=== PATIENT | male | born 1945 | race Caucasian/White ===

== ENCOUNTER 2023-06-10 10:58 | Outpatient (OUT) | payer MEDICARE, SELFPAY ==
[2023-06-10 11:45] LABS: Basophils Absolute Auto 0.1 10^3/uL (0.0-0.1); Basophils Percent Auto 0.6 % (0.2-2.0); Eosinophils Absolute Auto 0.2 10^3/uL (0.0-0.7); Hematocrit 44.6 % (42.0-54.0); Hemoglobin 15.4 g/dL (14.0-18.0); Immature Granulocytes Abs Auto 0.03 10^3/uL (0.00-0.03); Immature Granulocytes Pct Auto 0.3 % (0.0-0.5); Lymphocytes Absolute Auto 2.5 10^3/uL (1.2-3.8); Lymphocytes Percent Auto 24.8 % (20.5-60.0); Mean Corpuscular HGB Conc 34.5 g/dL (29.9-35.2); Mean Corpuscular Hemoglobin 31.5 pg (25.9-34.0); Mean Corpuscular Volume 91.2 fL (80.0-94.0); Mean Platelet Volume 9.8 fL (9.5-13.5); Monocytes Absolute Auto 0.9 10^3/uL (0.3-0.8); Monocytes Percent Auto 9.3 % (1.7-12.0); Neutrophils Absolute Auto 6.3 10^3/uL (1.4-6.5); Platelet Count 231 10^3/uL (150-450); Red Blood Count 4.89 10^6/uL (4.70-6.10); Red Cell Distribution Width 12.2 % (11.0-15.0); White Blood Count 10.1 10^3/uL (4.0-11.0)
[2023-06-10 11:58] LABS: Estimated Average Glucose 143 mg/dL; Glycohemoglobin A1C 6.6 % (4.5-6.2)
[2023-06-10 12:34] LABS: Alanine Aminotransferase 26 U/L (16-63); Albumin Globulin Ratio 1.1; Albumin Level 3.9 g/dL (3.4-5.0); Alkaline Phosphatase 91 U/L (46-116); Aspartate Amino Transferase 21 U/L (15-37); BUN Creatinine Ratio 12.8; Bilirubin Total 0.5 mg/dL (0.2-1.0); Calcium 8.9 mg/dL (8.5-10.1); Carbon Dioxide 29.1 mmol/L (21.0-32.0); Chloride 103 mmol/L (98-107); Chol HDL Ratio 3.3; Cholesterol 147 mg/dL (<=200); Estimated GFR (African America 55 (>=60); Estimated GFR (Non-African Ame 45 (>=60); Free T3 2.56 pg/mL (2.18-3.98); Globulin 3.5 g/dL; Glucose 102 mg/dL (74-106); HDL Cholesterol 44 mg/dL (40-60); LDL Cholesterol Calculated 74.2 mg/dL; Potassium 4.1 mmol/L (3.5-5.1); Sodium 141 mmol/L (136-145); Thyroid Stimulating Hormone 3.048 uIU/mL (0.358-3.740); Total Protein 7.4 g/dL (6.4-8.2); Triglycerides 144 mg/dL (<=150); VLDL CHOLESTEROL 28.8 mg/dL
[2023-06-10 12:36] LABS: Prostate Specific Antigen Scrn 4.86 ng/mL (<=4.00)
[2023-06-12 08:12] LABS: PSA, Free 1.65 ng/mL
== END 2023-06-10 10:59 | disposition home or self-care (01) ==
LOC: LAB 11:01
PROVIDERS: PCP Family Medicine; Visit Provider Family Medicine
DX: I10 Essential (primary) hypertension (principal); F52.21 Male erectile disorder; E11.65 Type 2 diabetes mellitus with hyperglycemia; E78.5 Hyperlipidemia, unspecified; Z12.5 Encounter for screening for malignant neoplasm of prostate; R73.09 Other abnormal glucose
CPT/HCPCS: 36415; 80053; 80061; 83036; 84153; 84154; 84436; 84443; 84481; 85025; G0103

== ENCOUNTER 2023-06-13 12:15 | Outpatient (OUT) | payer MEDICARE, SELFPAY ==
[2023-06-16 08:20] LABS: PSA, Free 1.82 ng/mL; Prostate Specific Ag 4.9 ng/mL (0.0-4.0)
== END 2023-06-13 12:16 | disposition home or self-care (01) ==
LOC: LAB 12:17
PROVIDERS: PCP Family Medicine; Visit Provider Family Medicine
DX: R97.20 Elevated prostate specific antigen [PSA] (principal)
CPT/HCPCS: 36415; 84153; 84154

== ENCOUNTER 2023-12-21 09:33 | Outpatient (OUT) | payer MEDICARE, SELFPAY ==
--- OUTSIDE RECORDS SUMMARY | 2023-12-21 09:41 | XMS_ITS | CCD ---
Author Organization [facility] Care Team Providers Care Half Sole Fitter Name Role Phone ROSIO LOCKETT Admitting Unavailable ADOLFO ., DR DONNELLY Primary Care Unavailable ROSIO LOCKETT Attending Unavailable ROSIO LOCKETT Consulting Unavailable NILAY JEONG Consulting Unavailable MARLENE HERNANDEZ Consulting Unavailable Allergies Allergy Classification Reported Allergen(s) Allergy Type Date of Onset Reaction(s) Facility (1 source) Penicillin Drug Allergy 02-14-2020 [facility] Repository Results Test Name Value Interpretation Reference Range Facil ity CT CHEST WO CONon 01-18-2023 CT CHEST WO CON EXAMINATION: CT CHES T WO CON HISTORY: CHEST PAIN, UNSPECIFIED COMPARISON: None. TECHNIQUE: CT examination of the chest without IV contrast. Coronal and sagittal reformations were performed. Dose reduction techniques were achieved by using automated exposure control and/or adjustment of mA and/or kV according to patient size and/or use of iterative reconstruction technique. FINDINGS: The heart size is normal. There is no evidence for pericardial effusion. The thoracic aorta is normal in course and caliber. There is no evidence for thoracic aortic aneurysm. Thoracic aortic calcification is seen. There is no evidence for pleural effusion or pneumothorax. No significant enlarged hilar, mediastinal or axillary adenopathy is seen. A 9 mm benign calcified nodule is seen in the right upper lobe. Atelectasis versus less likely small infiltrate is seen in the right lung base. Linear parenchymal markings are also seen in the right middle and lower lobes, suggestive of mild scar/atelectatic changes. The visualized chest wall appears unremarkable. Small gallstone is seen within the visualized gallbladder. No significant pleural thickening is seen in the visualized upper abdomen. Multilevel degenerative changes of the thoracic spine is seen. Acute to subacute mildly displaced left lateral sixth rib fracture is seen. IMPRESSION: Acute to subacute mildly displaced left lateral sixth rib fracture is seen. Atelectasis versus less likely small infiltrate is seen in the right lung base. Cholelithiasis. Electronically authenticated by: NILAY NOONANDANII Date: 2023-01-18 00:05 Normal [facility] Ambulatory Clinical Summaryo n 04-03-2020 Ambulatory Clinical Summary {[id number] Normal [facility] Ambulatory Clinical Summary {[id number] Normal [facility] General Surgery Office/Clini c Noteon 04-03-2020 General Surgery Office/Clinic Note Chief Complaint post operative follow up HPI Staff 14 day post operative follow up post excisional biopsy of right arm completed 03/20. Incision well approximated. Sutures intact. Denies drainage. History of Present Illness 2 weeks s/p excision of changing lesion right upper arm, pathology consistent with basal cell carcinoma, margins negative; doing well, some itching at incision, no drainage. Review of Systems ROS - Provider Constitutional: no fever, no sweats, no weight loss. Eyes: no glasses, no blurred vision, no visual loss. ENMT: no dentures, no hoarseness, no swallowing difficulties, no hearing loss, no ear infection(s), no nose bleeds. Cardiovascular: normal blood pressure, no chest pain, regular heartbeat, no heart murmur. Respiratory: no shortness of breath, no cough, no asthma, no wheezing. Gastrointestinal: no nausea, no vomiting, no diarrhea, no constipation, no blood in stool, no change in bowel habits, no abdominal pain, no hepatitis. Genitourinary: no kidney stones, no urine infection, no dysuria. Musculoskeletal: no pain, no weakness. Skin: no changing moles, no rash, no skin lumps. Neurologic: no seizures, no epilepsy, no headache. Psychiatric: no emotional or psychiatric problem. Heme/Lymph: no bleeding problems, no anemia, no blood clots, no transfusions. Allergy/Immunologic: no swollen lymph nodes/glands, no IV drug abuse. Other: Additional ROS info: Except as noted in the above Review of Systems and in the History of Present Illness, all other systems have been reviewed and are negative or noncontributory. Physical Exam Vitals & Measurements T: 36.5 ?C (Tympanic) skin: incision healing well, no drainage or ecchymoses; minimal erythema around sutures. Assessment/Plan 1. Basal cell carcinoma of right upper arm (C44.612: Basal cell carcinoma of skin of right upper limb, including shoulder) sutures removed; follow up as needed, call with problems/questions. Follow-up No qualifying data available Problem List/Past Medical History Ongoing Acquired cataract Basal cell carcinoma of right upper arm Basal cell carcinoma of upper back Benign essential HTN Controlled diabetes mellitus with hyperglycemia Neoplasm of uncertain behavior of skin Historical No qualifying data Procedure/Surgical History Artificial lens, Bilateral cataracts, Carotid stent, Lumbar discectomy, Rupture of left rotator cuff. Medications amLODIPine 5 mg Tab, 5 mg= 1 tab(s), Oral, Daily atorvastatin 40 mg Tab, 40 mg= 1 tab(s), Oral, Daily hydrochlorothiazide 12.5 mg Tab, 12.5 mg= 1 tab(s), Oral, Daily Lantus Solostar Pen, 20 unit(s), SubCutaneous, Daily lisinopril 40 mg Tab, 40 mg= 1 tab(s), Oral, Daily metformin 1000 mg Tab, 1000 mg= 1 tab(s), Oral, Bedtime Allergies penicillin (Unknown) Social History Alcohol Current, Beer, Daily, 03/15/2020 Substance Abuse - Denies Substance Abuse, 03/15/2020 Tobacco 10 or more cigarettes (1/2 pack or more)/day in last 30 days Tobacco Use:. Started age 11.0 Years[age] 03/15/2020 Family History Alcoholism: Brother. Cardiac arrest: Mother. Primary malignant neoplasm of brain: Sister. Normal [facility] Comment on above: Result Comment: Elec tronically Signed By: DAVID FELDER, Gen Boswell\Date and Time Signed: 04/03/20 14:20 EDT Pathology Noteon 03-26-2020 Pathology Note [id number]:127 Normal [facility] Ambulatory Clinical Summaryo n 2020 Ambulatory Clinical Summary {[id number]}CD:[id number] Normal [facility] General Surgery Office/Clini c Noteon 2020 General Surgery Office/Clinic Note Chief Complaint excisional biopsy- right arm HPI Staff Presents for excisional biopsy of right upper arm lesion. History of Present Illness patient here for excision of changing, enlarging lesion right upper extremity; smaller lesion adjacent to larger one. Review of Systems ROS - Provider Constitutional: no fever, no sweats, no weight loss. Eyes: yes glasses, no blurred vision, no visual loss. ENMT: no dentures, no hoarseness, no swallowing difficulties, no hearing loss, no ear infection(s), no nose bleeds. Cardiovascular: high blood pressure, no chest pain, regular heartbeat, no heart murmur. Respiratory: no shortness of breath, no cough, no asthma, no wheezing. Gastrointestinal: no nausea, no vomiting, no diarrhea, no constipation, no blood in stool, no change in bowel habits, no abdominal pain, no hepatitis. Genitourinary: no kidney stones, no urine infection, no dysuria. Musculoskeletal: no pain, no weakness. Skin: yes changing moles, no rash, no skin lumps. Neurologic: no seizures, no epilepsy, no headache. Psychiatric: no emotional or psychiatric problem. Heme/Lymph: no bleeding problems, no anemia, no blood clots, no transfusions. Allergy/Immunologic: no swollen lymph nodes/glands, no IV drug abuse. Other: Additional ROS info: Except as noted in the above Review of Systems and in the History of Present Illness, all other systems have been reviewed and are negative or noncontributory. Physical Exam Vitals & Measurements T: 37.0 ?C (Tympanic) skin: right upper outer arm with 6 mm irregular raised lesion with 3 mm adjacent similar lesion, no ulceration or bleeding. Procedure patient brought to procedure room, placed in left lateral decubitus position; area prepped and draped; anesthetized with 4 ml of 1% lidocaine plain; area excised in an elliptical fashion down to subcutaneous fat; including small adjacent lesion, total length of incision 2.2 cm; closed with interrupted 4-0 nylon sutures, tolerated well, ebl < 3 ml. sterile dressing applied. Assessment/Plan 1. Neoplasm of uncertain behavior of skin (D48.5: Neoplasm of uncertain behavior of skin) excised under local anesthesia, follow up in 2 weeks, call sooner if problems/questions. Follow-up No qualifying data available Problem List/Past Medical History Ongoing Acquired cataract Basal cell carcinoma of upper back Benign essential HTN Controlled diabetes mellitus with hyperglycemia Neoplasm of uncertain behavior of skin Historical No qualifying data Procedure/Surgical History Artificial lens, Bilateral cataracts, Carotid stent, Lumbar discectomy, Rupture of left rotator cuff. Medications amLODIPine 5 mg Tab, 5 mg= 1 tab(s), Oral, Daily atorvastatin 40 mg Tab, 40 mg= 1 tab(s), Oral, Daily hydrochlorothiazide 12.5 mg Tab, 12.5 mg= 1 tab(s), Oral, Daily Lantus Solostar Pen, 20 unit(s), SubCutaneous, Daily lisinopril 40 mg Tab, 40 mg= 1 tab(s), Oral, Daily metformin 1000 mg Tab, 1000 mg= 1 tab(s), Oral, Bedtime Allergies penicillin (Unknown) Social History Alcohol Current, Beer, Daily, 03/15/2020 Substance Abuse - Denies Substance Abuse, 03/15/2020 Tobacco 10 or more cigarettes (1/2 pack or more)/day in last 30 days Tobacco Use:. Started age 12.0 Years., 03/15/2020 Family History Alcoholism: Brother. Cardiac arrest: Mother. Primary malignant neoplasm of brain: Sister. Normal [facility] Comment on above: Result Comment: Elec tronically Signed By: DAVID FELDER, Gen Boswell\Date and Time Signed: 03/20/20 16:29 EDT Facesheeton 03-16-2020 Facesheet [id number]:127 Normal [facility] Ambulatory Clinical Summaryo n 03-15-2020 Ambulatory Clinical Summary {[id number]}CD:[id number] Normal [facility] General Surgery Office/Clini c Noteon 03-15-2020 General Surgery Office/Clinic Note Chief Complaint referral for skin lesion on right upper arm HPI Staff 74 year old male presents on consultation from Dr. Mccarty for skin lesion on right upper arm. Present 4-5 months. Extremely itchy. Has not changed in size. Applying Fluorouracil, which has not been effective. History of basal cell cancer on back. History of Present Illness 74 yo male with h/o basal cell cancer, h/o significant sun exposure, lived in [place] for 10 years, now with changing, enlarging lesion right upper extremity; nonpigmented, no bleeding, does scab over; very itchy; denies asa or NSAID use. Review of Systems PHQ Score Initial Depression Screen Score: 0 ROS - Provider Constitutional: no fever, no sweats, no weight loss. Eyes: no glasses, no blurred vision, no visual loss. ENMT: no dentures, no hoarseness, no swallowing difficulties, no hearing loss, no ear infection(s), no nose bleeds. Cardiovascular: normal blood pressure, no chest pain, regular heartbeat, no heart murmur. Respiratory: no shortness of breath, no cough, no asthma, no wheezing. Gastrointestinal: no nausea, no vomiting, no diarrhea, no constipation, no blood in stool, no change in bowel habits, no abdominal pain, no hepatitis. Genitourinary: no kidney stones, no urine infection, no dysuria. Musculoskeletal: no pain, no weakness. Skin: yes changing moles, no rash, no skin lumps. Neurologic: no seizures, no epilepsy, no headache. Psychiatric: no emotional or psychiatric problem. Heme/Lymph: no bleeding problems, no anemia, no blood clots, no transfusions. Allergy/Immunologic: no swollen lymph nodes/glands, no IV drug abuse. Other: Additional ROS info: Except as noted in the above Review of Systems and in the History of Present Illness, all other systems have been reviewed and are negative or noncontributory. Physical Exam Vitals & Measurements T: 36.8 ?C (Tympanic) HR: 80(Peripheral) RR: 16 BP: 170/78 HT: 170.18 cm WT: 96.0 kg BMI: 33.15 HEENT: normal conjunctiva, sclera clear, no scleral icterus, EOM intact, PERRLA, oral mucosa moist without lesions. Neck: trachea midline, no mass, symmetric, no thyromegaly or nodules, no adenopathy Respiratory: lungs CTA, respirations non labored. Cardiovascular: regular rate and rhythm, no murmur, no pedal edema or varicosities. Lymphatic: no cervical adenopathy, no axillary adenopathy, Musculoskeletal: normal gait, digits and nails without infection, nodes, cyanosis, clubbing. Skin: no rashes, right upper extremity with 6 mm irregular lesion, raised component, erythematous, no pigmentation, no drainage; no ulcers, no subcutaneous nodules, induration. Psychiatric/Neuro: oriented to time, place, person, judgement normal, affect appropriate for age, insight intact, no focal deficits. Tests: review of old records completed, Discussed surgical options, risks, and possible complications with patient. Assessment/Plan 1. Neoplasm of uncertain behavior of skin (D48.5: Neoplasm of uncertain behavior of skin) plan excisional biopsy in the office under local anesthesia for definitive diagnosis and treatment, informed consent obtained. Follow-up No qualifying data available Patient Education Excision of Skin Lesions Problem List/Past Medical History Ongoing Acquired cataract Basal cell carcinoma of upper back Benign essential HTN Controlled diabetes mellitus with hyperglycemia Neoplasm of uncertain behavior of skin Historical No qualifying data Procedure/Surgical History Artificial lens, Bilateral cataracts, Carotid stent, Lumbar discectomy, Rupture of left rotator cuff. Medications amLODIPine 5 mg Tab, 5 mg= 1 tab(s), Oral, Daily atorvastatin 40 mg Tab, 40 mg= 1 tab(s), Oral, Daily hydrochlorothiazide 12.5 mg Tab, 12.5 mg= 1 tab(s), Oral, Daily Lantus Solostar Pen, 20 unit(s), SubCutaneous, Daily lisinopril 40 mg Tab, 40 mg= 1 tab(s), Oral, Daily metformin 1000 mg Tab, 1000 mg= 1 tab(s), Oral, Bedtime Allergies penicillin (Unknown) Social History Alcohol Current, Beer, Daily, 03/15/2020 Substance Abuse - Denies Substance Abuse, 03/15/2020 Tobacco 10 or more cigarettes (1/2 pack or more)/day in last 30 days Tobacco Use:. Started age 11.0 Years., 03/15/2020 Family History Alcoholism: Brother. Cardiac arrest: Mother. Primary malignant neoplasm of brain: Sister. Normal [facility] Comment on above: Result Comment: Elec tronically Signed By: DAVID FELDER, Gen Boswell\Date and Time Signed: 03/15/20 09:37 EDT Patient Educationon 03-15-20 20 Patient Education Excision of Skin Lesions Excision of a skin lesion refers to the removal of a section of skin by making small cuts (incisions ) in the skin. This is typically done to remove a cancerous growth (basal cell carcinoma, squamous cell carcinoma, or melanoma) or a noncancerous growth (cyst ). It may be done to treat or prevent cancer or infection. It may also be done to improve cosmetic appearance (removal of mole, skin tag). LET YOUR CAREGIVER KNOW ABOUT: ? Allergies to food or medicine. ? Medicines taken, including vitamins, herbs, eyedrops, [id number] medicines, and creams. ? Use of steroids (by mouth or creams). ? Previous problems with anesthetics or numbing medicines. ? History of bleeding problems or blood clots. ? History of any prostheses. ? Previous surgery. ? Other health problems, including diabetes and kidney problems. ? Possibility of , if this applies. RISKS AND COMPLICATIONS Many complications can be managed. With appropriate treatment and rehabilitation, the following complications are very uncommon: ? Bleeding. ? Infection. ? Scarring. ? Recurrence of cyst or cancer. ? Changes in skin sensation or appearance (discoloration, swelling). ? Reaction to anesthesia. ? Allergic reaction to surgical materials or ointments. ? Damage to nerves, blood vessels, muscles, or other structures. ? Continued pain. BEFORE THE PROCEDURE It is important to follow your caregiver's instructions prior to your procedure to avoid complications. Steps before your procedure may include: ? Physical exam, blood tests, other procedures, such as removing a small sample for examination under a microscope (biopsy ). ? Your caregiver may review the procedure, the anesthesia being used, and what to expect after the procedure with you. You may be asked to: ? Stop taking certain medicines, such as blood thinners (including aspirin, clopidogrel, ibuprofen), for several days prior to your procedure. ? Take certain medicines. ? Stop smoking. It is a good idea to arrange for a ride home after surgery and to have someone to help you with activities during recovery. PROCEDURE There are several excision techniques. The type of excision or surgical technique used will depend on your condition, the location of the lesion, and your overall health. After the lesion is sterilized and a local anesthetic is applied, the following may be performed: Complete surgical excision The area to be removed is marked with a pen. Using a small scalpel and scissors, the surgeon gently cuts around and under the lesion until it is completely removed. The lesion is placed in a special fluid and sent to the lab for examination. If necessary, bleeding will be controlled with a device that delivers heat. The edges of the wound are stitched together and a dressing is applied. This procedure may be performed to treat a cancerous growth or noncancerous cyst or lesion. Surgeons commonly perform an elliptical excision, to minimize scarring. Excision of a cyst The surgeon makes an incision on the cyst. The entire cyst is removed through the incision. The wound may be closed with a suture (stitch ). Shave excision During shave excision, the surgeon uses a small blade or loop instrument to shave off the lesion. This may be done to remove a mole or skin tag. The wound is usually left to heal on its own without stitches. Punch excision During punch excision, the surgeon uses a small, round tool (like a [employer]rol[employer]ie cutter) to cut a [place] shape out of the skin. The outer edges of the skin are stitched together. This may be done to remove a mole or scar or to perform a biopsy of the lesion. Mohs micrographic surgery During Mohs micrographic surgery, layers of the lesion are removed with a scalpel or loop instrument and immediately examined under a microscope until all of the abnormal or cancerous tissue is removed. This procedure is minimally invasive and ensures the best cosmetic outcome, with removal of as little normal tissue as possible. Mohs is usually done to treat skin cancer, such as basal cell carcinoma or squamous cell carcinoma, particularly on the face and ears. Antibiotic ointment is applied to the surgical area after each of the procedures listed above, as necessary. AFTER THE PROCEDURE How well you heal depends on many factors. Most patients heal quite well with proper techniques and self-care. Scarring will lessen over time. HOME CARE INSTRUCTIONS ? Take medicines for pain as directed. ? Keep the incision area clean, dry, and protected for at least 48 hours. Change dressings as directed. ? For bleeding, apply gentle but firm pressure to the wound using a folded towel for 20 minutes. Call your caregiver if bleeding does not stop. ? Avoid high-impact exercise and activities until the stitches are removed or the area heals. ? Follow your caregiver's instructions to minimize scarring. Avoid sun exposure until the area has healed. Scarring should lessen over time. ? Follow up with your caregiver as directed. Removal of stitches within 4 to 14 days may be necessary. Finding out the results of your test Not all test results are available during your visit. If your test results are not back during the visit, make an appointment with your caregiver to find out the results. Do not assume everything is normal if you have not heard from your caregiver or the medical facility. It is important for you to follow up on all of your test results. SEEK MEDICAL CARE IF: ? You or your child has an oral temperature above 102? F (38.9? C). ? You develop signs of infection (chills, feeling unwell). ? You notice bleeding, pain, discharge, redness, or swelling at the incision site. ? You notice skin irregularities or changes in sensation. MAKE SURE YOU: ? Understand these instructions. ? Will watch your condition. ? Will get help right away if you are not doing well or get worse. FOR MORE INFORMATION [employer] [place] [employer]: www.aafp.org [employer] [place] [employer]: www.aad.org Document Released: 11/04/2010 Document Revised: 11/01/2012 Document Reviewed: 11/04/2010 ExitCare? Patient Information ?2013 [employer]. [facility] Physician Referralon 020 Physician Referral [id number] .[id number]:127 [facility] Encounters Encounter Date Encounter Type Care Provider Facility Start: 01-17-2023 End: 01-18-2023 [facility] Facility: Payers Date Payer Category Payer Medicare [id number] 1960 Unknown [id number] 1945 Unknown [id number] Clinical Note 01-18-2023 Note Date & Type Note Facility 01-18-2023 Note PROCEDURE: XR RIBS L T PA CH DATE: 01/17/2023 8:43 PM CDT COMPARISONS: None. CLINICAL INDICATION: 77 years Male Pain Requisition states: Patient states left affected side pops when he coughs FINDINGS: The cardiomediastinal silhouette and pulmonary vasculature are within normal limits. There is a 1.5 cm nodule of the lateral mid lower chest. This could be a neoplastic nodule. Follow-up CT of the chest is recommended. There is findings consistent with some atelectasis at the right lung base. There is no evidence of pleural effusion or pneumothorax. There is a slightly displaced fracture of the lateral left seventh rib. Subtle lucency of the lateral left sixth rib suggested could be the sixth rib fracture as well although this cannot be stated with certainty IMPRESSION: 1. Left seventh rib fracture, slightly displaced 2. 1 view shows a possible 15 mm nodule overlying the mid lower lateral right chest. Follow-up CT recommended for further evaluation. Electronically authenticated by: MARLENE HERNANDEZ Date: 2023-01-17 22:52 [facility] Summary Purpose Family History No Family History Records FoundNo Family History Records Found Advance Directives No Advanced Directives Records FoundNo Advanced Directives Records Found Additional Source Comments (unrecognized sect ion and content) No Status Records FoundNo Status Records Found INFORMATION SOURCE (unrecogn ized section and content) DATE CREATED AUTHOR 04/04/2020 [facility] DATE CREATED AUTHOR AUTHOR'S ORGANIZ ATION 01/30/2023 [facility] FOR RECORDS PERTAINING TO PATIENTS WHO ARE OR HAVE BEEN ENROLLED IN A CHEMICAL DEPENDENCY/SUBSTANCEABUSE PROGRAM, SOME INFORMATION MAY BE OMITTED. This clinical summary was aggregated from multiple sources. Caution should be exercised in using it in the provision of clinical care. This summary normalizes information from multiple sources, and as a consequence, information in this document may materially change the coding, format and clinical context of patient data. In addition, data may be omitted in some cases. CLINICAL DECISIONS SHOULD BE BASED ON THE PRIMARY CLINICAL RECORDS. [facility]. provides no warranty or guarantee of the accuracy or completeness of information in this document.
[2023-12-21 10:05] LABS: Basophils Absolute Auto 0.1 10^3/uL (0.0-0.1); Basophils Percent Auto 0.6 % (0.2-2.0); Eosinophils Absolute Auto 0.1 10^3/uL (0.0-0.7); Eosinophils Percent Auto 1.3 % (0.9-7.0); Hematocrit 46.4 % (42.0-54.0); Hemoglobin 15.5 g/dL (14.0-18.0); Immature Granulocytes Abs Auto 0.03 10^3/uL (0.00-0.03); Immature Granulocytes Pct Auto 0.3 % (0.0-0.5); Lymphocytes Absolute Auto 2.1 10^3/uL (1.2-3.8); Lymphocytes Percent Auto 21.4 % (20.5-60.0); Mean Corpuscular HGB Conc 33.4 g/dL (29.9-35.2); Mean Corpuscular Hemoglobin 30.6 pg (25.9-34.0); Mean Corpuscular Volume 91.5 fL (80.0-94.0); Mean Platelet Volume 9.2 fL (9.5-13.5); Monocytes Absolute Auto 1.1 10^3/uL (0.3-0.8); Monocytes Percent Auto 10.9 % (1.7-12.0); Neutrophils Absolute Auto 6.5 10^3/uL (1.4-6.5); Neutrophils Percent Auto 65.5 % (43.0-75.0); Platelet Count 243 10^3/uL (150-450); Red Blood Count 5.07 10^6/uL (4.70-6.10); Red Cell Distribution Width 12.4 % (11.0-15.0); White Blood Count 9.9 10^3/uL (4.0-11.0)
[2023-12-21 13:33] LABS: Alanine Aminotransferase 25 U/L (16-63); Albumin Level 3.6 g/dL (3.4-5.0); Alkaline Phosphatase 103 U/L (46-116); Anion Gap 13.2; Aspartate Amino Transferase 23 U/L (15-37); BUN Creatinine Ratio 22.6; Bilirubin Total 0.5 mg/dL (0.2-1.0); Calcium 9.1 mg/dL (8.5-10.1); Chloride 103 mmol/L (98-107); Chol HDL Ratio 2.8; Cholesterol 171 mg/dL (<=200); Estimated GFR (African America >60 (>=60); Estimated GFR (Non-African Ame 50 (>=60); Free T3 2.55 pg/mL (2.18-3.98); Globulin 3.7 g/dL; Glucose 113 mg/dL (74-106); HDL Cholesterol 62 mg/dL (40-60); Potassium 4.2 mmol/L (3.5-5.1); Sodium 135 mmol/L (136-145); Total Protein 7.3 g/dL (6.4-8.2); Triglycerides 48 mg/dL (<=150); VLDL CHOLESTEROL 9.6 mg/dL
[2023-12-21 14:14] LABS: Estimated Average Glucose 108 mg/dL; Glycohemoglobin A1C 5.4 % (4.5-6.2)
[2023-12-22 08:18] LABS: Prostate Specific Ag 4.7 ng/mL (0.0-4.0)
== END 2023-12-21 09:34 | disposition home or self-care (01) ==
LOC: LAB 09:37
PROVIDERS: PCP Family Medicine; Visit Provider Family Medicine
DX: Z00.00 Encounter for general adult medical examination without abnormal findings (principal); E78.5 Hyperlipidemia, unspecified; E03.9 Hypothyroidism, unspecified; E11.65 Type 2 diabetes mellitus with hyperglycemia; R97.20 Elevated prostate specific antigen [PSA]
CPT/HCPCS: 36415; 80053; 80061; 82306; 83036; 84153; 84154; 84436; 84443; 84481; 85025